=== PATIENT | female | born 1970 | race Caucasian/White ===

== ENCOUNTER 2019-05-03 15:15 | Inpatient (IN) | payer BC ==
[2019-05-03 16:42] LABS: Hemoglobin 13.7 g/dL (12.0-16.0); Mean Corpuscular HGB CONC 33.5 g/dL (32.0-36.0); Mean Corpuscular Hemoglobin 29.6 pg (27.0-31.0); Mean Corpuscular Volume 88.4 fL (78.0-98.0); Mean Platelet Volume 7.2 fL (7.4-10.4); Platelet Count 260 thou/uL (130-400); RBC Distribution Width 13.3 % (11.5-14.5); Red Blood Cell (RBC) Count 4.62 mill/uL (4.20-5.40); White Blood Cell (WBC) Count 6.6 thou/uL (4.8-10.8)
[2019-05-03 17:18] LABS: BHCG - Serum Negative (NEGATIVE); Pregs Control Background? CLEAR/WHITE (CLR/WHITE); Pregs Control Bar Appear? YES (CONTROL BAR)
[2019-05-04] MEDS ORDERED: Gabapentin 300 MG CAP ONE (06:27)
[2019-05-04] MEDS ORDERED: Famotidine/PF 20 mg/2ml Vial ONE (06:28)
[2019-05-04] MEDS ORDERED: Fentanyl 100 MCG/2 ML VIAL ONE (06:28)
[2019-05-04] MEDS ORDERED: CeleCOXIB 100 MG CAP ONE (06:28)
[2019-05-04] MEDS ORDERED: Midazolam HCl 2 mg/2 ml Vial ONE ×2 (06:28→07:09)
[2019-05-04] MEDS ORDERED: CEFAZOLIN 1 GM VIAL ONE (06:29)
--- NOTE | 2019-05-04 06:29 | HP ---
DATE OF SCHEDULED SURGERY: 05/04/2019. HISTORY OF PRESENT ILLNESS: Ms. Gonzales is a 48-year-old white female G4, P2, A2 with prior 2 vaginal deliveries who was presenting with increasing pelvic prolapse symptoms. She has a known cystocele with stress incontinence symptoms. She describes loss of urine with cough, sneeze provoking actions. This is worse when she is standing up, it is especially for prolonged periods. She has tried pelvic floor therapy and Kegel's with no improvement in her prolapse symptoms. She feels a constant bulge, heaviness in her pelvis along with the urinary incontinence issues. She is also having very heavy menstrual flow and cramping. Due to the heavy flow and crampiness, she had a transvaginal ultrasound on March 29 showing myometrial changes consistent with adenomyosis and also small uterine fibroids. No adnexal masses were noted. She describes these symptoms she is having is affecting her activities of daily life and she has failed conservative therapy and desires definitive surgical therapy. PAST MEDICAL HISTORY: Negative. PAST SURGICAL HISTORY: D & C x2, Pap smear with HPV cells were negative in April 2017 and breast surgery augmentation. SOCIAL HISTORY: She is a nonsmoker. ALLERGIES: SHE HAS NO KNOWN DRUG ALLERGIES. FAMILY HISTORY: Noncontributory. PHYSICAL EXAMINATION: VITAL SIGNS: Her blood pressure is 118/68, pulse 75, respirations 18, O2 saturation on room air is 98%, weight is 156 pounds, height 5 feet 6 inches, BMI 25.2. HEENT: Within normal limits. CHEST: Clear to auscultation. HEART: Regular rate and rhythm. S1 and S2 heart sounds. No murmurs, rubs, or gallops. ABDOMEN: Soft, nontender, nondistended with no palpable masses. PELVIC: Vulva vagina had no lesions. Cervix had no lesion. She had a grade 3 cystocele and grade 2 rectocele. She has had a hypermobile urethral vaginal angle of approximately 45 degrees. She had grade 2 apical uterine prolapse also noted. Adnexa were nontender with no masses. She underwent formal urodynamic study on April 20 in the dorsal lithotomy position. She had a postvoid residual of 168. She had first sensation at 438 mL, 2nd at 597 and third at 807. Lying down, she did not manifest any leak with cough or Valsalva, but patient states most of her symptoms occur when she is in the standing position, provoking this with coughing, sneezing and straining. She does not have any urge incontinence symptoms. ASSESSMENT: This is a 48-year-old white female G4, P2, A2 with grade 3 cystocele, grade 2 rectocele, grade 2 uterine prolapse with genuine stress incontinence symptoms. She also has menorrhagia with uterine fibroids and findings on ultrasound consistent with adenomyosis. PLAN: Plan is to proceed with robotic total laparoscopic hysterectomy with bilateral salpingectomy followed by uterosacral vaginal vault suspension and anterior posterior repair with an Advantage Fit TVT and cystoscopy. The risks and benefits of procedure discussed in detail. She is set for surgery on 05/04/2019. Job ID: [id number]
[2019-05-04] MEDS ORDERED: Lidocaine 1% w/Epinephrine 1:100K 20 ML VIAL ONE ×2 (07:01→10:27)
[2019-05-04] MEDS ORDERED: Bupivacaine HCl 0.5%/Epinephrine 1:200,000/PF 30 ml Vial ONE (07:01)
[2019-05-04] MEDS ORDERED: Scopolamine 1.5 mg/72 hour Patch ONE (07:09)
[2019-05-04] MEDS ORDERED: Ondansetron HCl/PF 4 MG/2 ML Vial IVP PRN (11:22)
[2019-05-04] MEDS ORDERED: Promethazine HCl 25 MG/ML VIAL SLOW IVP PRN (11:22)
[2019-05-04] MEDS ORDERED: Promethazine HCl 25 MG/ML VIAL IM PRN ×2 (11:22→12:32)
[2019-05-04] MEDS ORDERED: Meperidine HCl/PF 25 MG/ML VIAL SLOW IVP PRN (11:22)
[2019-05-04] MEDS ORDERED: Meperidine HCl/PF 25 MG/ML VIAL ONE (11:54)
[2019-05-04] MEDS ORDERED: diphenhydrAMINE 25 MG CAP PO PRN (12:32)
[2019-05-04] MEDS ORDERED: Morphine 4 MG/ML VIAL SLOW IVP PRN (12:32)
[2019-05-04] MEDS ORDERED: Zolpidem Tartrate 5 MG TAB PO PRN (12:32)
[2019-05-04] MEDS ORDERED: Ondansetron PF 4 MG/2 ML Vial IVP PRN (12:32)
[2019-05-04] MEDS ORDERED: traMADol HCl 50 MG TAB PO PRN ×2 (12:32)
[2019-05-04 12:49] VITALS: BMI 24.5
[2019-05-04] MEDS ORDERED: Ketorolac Tromethamine 30 MG/ML VIAL ONE (15:17)
[2019-05-04] MEDS ORDERED: Lidocaine 1% PF 5 ML VIAL ONE (15:17)
[2019-05-04] MEDS ORDERED: PROPOFOL 200 MG/20 ML VIAL ONE (15:17)
[2019-05-04] MEDS ORDERED: Rocuronium Bromide 10 MG/ML (10ML VIAL) ONE (15:17)
[2019-05-04] MEDS ORDERED: Metoclopramide HCl 10 MG/2 ML VIAL ONE (15:17)
[2019-05-04] MEDS ORDERED: Dexamethasone 20 MG/5 ML VIAL ONE (15:17)
[2019-05-04] MEDS ORDERED: Ondansetron PF 4 MG/2 ML Vial ONE (15:17)
[2019-05-04] MEDS: Ketorolac Tromethamine 30 MG/ML VIAL IVP SCH (17:11)
[2019-05-04] MEDS: Lactated Ringer's 1,000 ML IV SCH (20:00)
[2019-05-04] MEDS: Ascorbic Acid 500 mg Chewable Tablet PO SCH (20:59)
[2019-05-04] MEDS: Simethicone Chewable 80 MG TAB PO PRN (20:59)
[2019-05-04] MEDS ORDERED: Ferrous Sulfate 325 MG TAB PO SCH (21:00)
[2019-05-05] MEDS: Ketorolac Tromethamine 30 MG/ML VIAL IVP SCH ×5 (00:10→15:06)
[2019-05-05] MEDS: Lactated Ringer's 1,000 ML IV SCH ×3 (01:27→12:25)
[2019-05-05 06:06] LABS: Hemoglobin 12.4 g/dL (12.0-16.0); Mean Corpuscular Hemoglobin 29.4 pg (27.0-31.0); Mean Corpuscular Volume 89.2 fL (78.0-98.0); Mean Platelet Volume 7.3 fL (7.4-10.4); Platelet Count 226 thou/uL (130-400); RBC Distribution Width 13.3 % (11.5-14.5); Red Blood Cell (RBC) Count 4.21 mill/uL (4.20-5.40); White Blood Cell (WBC) Count 12.3 thou/uL (4.8-10.8)
--- NOTE | 2019-05-05 07:59 | PDOC.EVN ---
Event Note - Event Note Event Note: Good pain control. Tolerating diet. No concerns. O:AFVSS HCT 37.6 U/O 4000ml Trochar sites clean, dry , and intact. A/P: Post op day 1 from robotic tlh with a&P and advantage fit TVT/uterosacral vaginal vault suspension. Begin Voiding trials...
[2019-05-05] MEDS: Ascorbic Acid 500 mg Chewable Tablet PO SCH (09:16)
[2019-05-05] MEDS: Simethicone Chewable 80 MG TAB PO PRN (09:17)
--- NOTE | 2019-05-05 10:08 | OP ---
DATE OF PROCEDURE: 05/04/2019 PREOPERATIVE DIAGNOSES: 1. A 48-year-old white female 4, para 2, 2 with symptomatic grade 3 cystocele, grade 2 uterine prolapse, and grade 3 rectocele. 2. Menorrhagia and uterine fibroids. 3. Adenomyosis on ultrasound findings. 4. Genuine stress incontinence. POSTOPERATIVE DIAGNOSES: 1. A 48-year-old white female 4, para 2, 2 with symptomatic grade 3 cystocele, grade 2 uterine prolapse, and grade 3 rectocele. 2. Menorrhagia and uterine fibroids. 3. Adenomyosis on ultrasound findings. 4. Genuine stress incontinence. PROCEDURE PERFORMED: 1. Robotic total laparoscopic hysterectomy. 2. Bilateral salpingectomy. 3. Uterosacral vaginal vault suspension. 4. Anterior-posterior repair. 5. Advantage Fit TVT with cystoscopy. EQUIPMENT ANALYST SURGEON: Wendy Quinteros DO. ANESTHESIA: General. ESTIMATED BLOOD LOSS: 50 mL. COMPLICATIONS: None. COUNTS: Correct x2. ANTIBIOTICS: 2 g Ancef. ON-CALL: To OR. PATHOLOGY: Uterus, cervix and bilateral fallopian tubes. FINDINGS: 1. Globularly enlarged approximately 8-10 week size uterus consistent with adenomyosis with small uterine fibroids. 2. Normal-appearing bilateral fallopian tubes and ovaries. 3. Cystoscopy of the bladder showed normal mucosa with no evidence of trocar placement, status post Advantage Fit TVT and also bilateral efflux of urine noted in the each ureteral orifice postprocedure. DISPOSITION: Recovery room, stable. DESCRIPTION OF OPERATIVE PROCEDURE: The patient previously received informed consent in regard to surgery. She was taken back to the operating room, where she received a general anesthetic agent without complications. She was placed in dorsal supine position with use of Armando stirrups and prepped and draped in usual sterile fashion. Joya catheter was placed at this time. A side-arm speculum was placed in the vagina. Anterior lip of the cervix was grasped with single-tooth tenaculum. The uterus sounded to 10 cm. A 10 cm DEDE uterine manipulator with a 4.0 cm cervical cup was placed in usual fashion. Tenaculum and speculum were removed. Attention was then turned to the abdomen, where perspective trocar sites were infiltrated with 0.5% Marcaine with epinephrine. A 12 mm supraumbilical incision was made. Veress needle was entered into the peritoneal cavity. The patient's pressure was noted to be less than 5 mm and abdomen was thought to be insufflated. This insufflated with the patient's pressure of 15, approximately 4.5 L of carbon dioxide gas. Veress needle was then removed. A 12 mm trocar was placed through the supraumbilical incision. The laparoscope was introduced through trocar sleeve confirming proper entry. The patient was then placed in Trendelenburg position. Additional bilateral lower quadrant 8 mm trocars were placed. Laparoscopic guidance along with the right upper quadrant 11 mm port. The robot was then docked in usual fashion. I then broke scrub and proceeded to carry out the procedure from the operative console while my assistants remained at the bedside. The uterus was elevated. The uterosacral ligaments were identified. The course of each ureter bilaterally was identified to be lateral to the prospective uterosacral windows that were going to be developed for uterosacral vaginal vault suspension later. The left uterosacral ligament was grasped with bipolar fenestrated cautery and medial to this the peritoneum and the uterosacral ligament were lifted with bipolar fenestrated cautery and then was incised with monopolar scissors developing a window medial and noted to be away from the left ureter. This was repeated in likewise fashion on the right side uterosacral ligament. We then proceeded to identify the left tube and ovary. The tube was grasped by my assistant merchandise manager and the medial salpinx was excised with monopolar scissors creating a window. Bipolar fenestrated cautery was used to coagulate the mesosalpinx and the tube was excised and brought out through the right upper quadrant assistant merchandise manager port. The left uterine ovarian ligament was then coagulated and transected. Serial coagulation of the broad ligament hugging close to uterus was carried out. Coagulation transection ensued to the left round ligament was reached. It was coagulated and transected. The anterior leaf of the vesicouterine peritoneum was then incised, developing the bladder flap in usual fashion both sharply and bluntly dissecting the bladder past the cervical vaginal angle and margin. The uterine vessels in the left side were skeletonized and coagulated in the internal cervical os region with bipolar fenestrated cautery. This was carried out in likewise fashion on the right side again. Right tube was removed in similar fashion. Right utero-ovarian ligament was coagulated and transected and serial coagulation of the broad ligament hugging close to the uterus was carried out until the right round ligament was reached. It again was coagulated and transected again entering the anterior leaf of the broad ligament and vesicouterine peritoneum with incision and dissection, dropping the bladder in a layering technique past the cervical vaginal angle. The bladder was insufflated also confirming its safety. The uterine vessels on the right side again were skeletonized, coagulated in the internal cervical os region. The anterior colpotomy was then made starting from 12 to 3 and 12 to 9 o'clock position. It was completed posteriorly from 6 to 9 and 6 to 3 o'clock. The uterine specimen was then delivered in the vaginal vault. The vaginal cuff was coagulated any oozing areas with bipolar fenestrated cautery. The monopolar scissors were switched with a Donnell needle ready mix truck driver. My assistant merchandise manager brought in a Stratafix suture and then the Stratafix suture was utilized to close the vaginal cuff starting at the right angle up to the midline. The Stratafix suture broke and then additional one was brought in after it was removed. This began at the left ankle and completed across to the right angle securing hemostasis and closure. The needle and the suture were brought out through the right upper quadrant assistant merchandise manager port. Then 2-Ethibond sutures were brought into the pelvis. The Ethibond suture was utilized to suture full thickness through the right medial, right middle and lateral portions of the vaginal cuff, bringing this through the previous dissected window of the right uterosacral ligament back handedly through the posterior vaginal cuff. This was tied with 6 suture knots lifting the vaginal cuff. This was repeated in likewise fashion on the left side. Bilateral ureters were noted to be visible the entire time and post suspension they were noted to have bilateral peristalsis confirmed. Sutures and needles were then removed and the right upper quadrant assistant merchandise manager port. The pelvis irrigated and suctioned. The pedicle sites were inspected and noted to be hemostatic. The robot was then undocked and trocar sleeves were removed. I broke from the console and then rescrubbed and then the fascial defect in the supraumbilical area was closed with a [id number]-[id number]-[id number] suture of 0 Vicryl. The remainder of the trocar sites were closed with 4-0 Monocryl suture with Dermabond. Attention was then turned to the vaginal portion of surgery. This is the vaginal portion of her surgery on 05/04/2019. The patient was placed in dorsal lithotomy position for vaginal surgery. Weighted speculum was placed in the vagina. The Joya catheter was noted to be draining clear urine at this time. The vaginal cuff was identified and two Allis clamps were clamped there. The anterior vaginal mucosa was infiltrated with 1% lidocaine with epinephrine. A midline vertical incision starting at the cuff line to approximately 2 cm from the urethral meatus was made with Metzenbaum scissors. The edges of the anterior vaginal mucosa were grasped with Allis clamps with counter traction. This allowed for dissection of the endopelvic fascial defect, dissecting still both sharply and bluntly. Once the cystocele had been reduced, intervening mattress sutures of 2-0 Vicryl were placed incorporating the endopelvic fascia and plicating in the midline reducing the cystocele. After this was accomplished, the anterior vaginal mucosa was closed with 2-0 Vicryl suture incorporating some of the endopelvic fascia, ridding the space. Once this had been accomplished, the midportion of the urethra was identified. The Joya bulb had been palpated at the UV junction and the midportion of the urethra was visualized and palpated. anteriorly and inferiorly to this portion were placed and lidocaine with epinephrine again was infiltrated in the mucosa overlying the mid urethra and bilateral sulci of the vagina in the towards the junction of the symphysis pubis and inferior pubic ramus. Approximately 1.5 cm vertical midline vaginal mucosal incision over the mid urethra was made. The edges of this were grasped with two Allis clamps. Then, I dissected submucosally the vaginal mucosa with Metzenbaum scissors in the junction direction of the inferior pubic rami and symphysis pubis, perforating into the space of Retzius bilaterally. Once this had been accomplished, the symphysis pubis had been marked in the midline of the urethra and 2 cm lateral on each side to this behind the symphysis pubic bone for the marker sites per perspective trocar exits. This area was then hydrodissected with approximately 60 mL of sterile saline. The Advantage Fit TVT device was then assembled and Joya catheter had been removed. The Joya with a guidewire was placed deflecting the bladder towards the patient's left. The Advantage Fit trocar was then placed to the patient's right side, the previously dissected submucosal space of Retzius tunneling. The trocar was brought through there and the handle was dropped, passing the trocar underneath the symphysis pubis into the previously marked exit site. This was perforated through the skin and then the plastic portion of the mesh was grasped with Connie clamps. The trocar was then backed out. This was repeated in likewise fashion on the patient's left side. Then, the bladder had been deflected to the patient's right side during the trocar placement on the left. The Joya was removed and 70-degree cystoscope was then placed. The bladder was distended. The bladder mucosa was inspected. There was no evidence of any mesh placement through the bladder. The trigone was then also identified and bilateral ureteral orifices were visualized. Bilateral efflux of urine was noted. The cystoscope was then removed. The TVT mesh was aligned appropriately and a Ghotra scissor was then placed under the mid urethra. My assistant merchandise manager then brought the mesh up with the Ghotra scissor and incised in place giving exacting attention. The cap was then cut and the plastic sleeves over the mesh was released. The mesh was then cut at the skin line in the symphysis pubis area and then Dermabond was placed over these. The Ghotra scissor was then removed. The area over the TVT mucosa was closed with interrupted drqcuk-sg-bnffy stitch sutures of 2-0 Vicryl securing hemostasis. Ojya catheter was then reinserted with clear urine draining. The posterior repair was then performed. The vaginal mucosa at the 4 and 8 o'clock position of the vaginal introitus was grasped with two Allis clamps. The perineal body appeared preserved. The posterior vaginal mucosa was infiltrated with 1% lidocaine with epinephrine. A midline incision with the scalpel along with Metzenbaum scissors were then utilized to incise the posterior vaginal mucosa to the cuff line. The edges of the vaginal mucosa were grasped with Allis clamps for counter traction and exposure. The rectocele defect was dissected sharply and bluntly reduced in its entirety. An extra glove was then placed over my right surgical glove and a rectal exam was performed, identifying the fascial defect. The endopelvic fascia and upper portion of the vagina were grasped bilaterally with two Allis clamps. Rectal blood was then removed and then I proceeded to plicate the endopelvic fascia with 0 Vicryl sutures in a pfmgyh-pq-jwhsk stitch fashion, repairing the rectocele defect starting most cephalad and working out towards the vaginal introitus. Once the endopelvic fascia had been reapproximated and plicated reducing the rectocele, the vaginal mucosa was then closed starting most cephalad with interrupted 2-0 Vicryl nefhjo-eg-aopnf stitch again incorporating the endopelvic fascia. This worked out towards the vaginal introital opening and the excess tissue throughout the mucosa were incised. Once this was closed, hemostasis was confirmed. The rectal exam again was performed and rectal mucosa stitches were palpable. Moistened Kerlix was then packed in the vaginal vault and then the patient was awakened from anesthesia and transferred to recovery room in stable condition. Job ID: [id number]
[2019-05-05 11:47] VITALS: BP 129/72; TEMP 98.4
[2019-05-05] MEDS ORDERED: Ibuprofen 800 MG TAB PO SCH (12:00)
--- NOTE | 2019-05-06 05:31 | DIS ---
DATE OF ADMISSION: 05/04/2019 DATE OF DISCHARGE: 05/05/2019 DIAGNOSES: 1. Symptomatic uterine fibroids with menorrhagia. 2. Adenomyosis of the uterus. 3. Cystocele and rectocele. 4. Genuine stress incontinence and uterine prolapse. PROCEDURES PERFORMED: 1. Robotic total laparoscopic hysterectomy and bilateral salpingectomy with uterosacral vaginal vault suspension. 2. Anterior and posterior repair. 3. Advantage Fit TVT with cystoscopy. SUMMARY OF HOSPITAL COURSE: Ms. Gonzales is a 48-year-old white female with symptomatic pelvic prolapse and stress incontinence along with menorrhagia secondary to uterine fibroids and adenomyosis of the uterus. She underwent definitive surgical therapy with robotic total laparoscopic hysterectomy, bilateral salpingectomy with uterosacral vaginal vault suspension, and anterior and posterior repair with Advantage Fit TVT cystoscopy on 05/04/2019. Postoperatively, the patient has done well. She is hemodynamically stable. Vital signs were stable. Hematocrit postop day #1 was 37.9%. She began voiding trials on the morning of postop day #1. She was initially unable to void and a straight catheterization was performed relieving an approximate of 1 L of her urine. She began having more voiding trials, voided 150-200, but had significant postvoid residual over 750 to 800 range and therefore, Joya catheter was reinserted. She was discharged home the afternoon of postop day #1 with Joya in situ. Plan is to continue Joya drainage to allow for bladder recoil since the patient did have elevated postvoid residuals in her initial urodynamics. This allowed for recoil of the bladder and to improve voiding function. Plan to remove the Joya on postop day #5 in my office on 05/10. Pathology revealed benign uterine fibroids and adenomyosis of the uterus, benign fallopian tube findings. Discharge medications will be [id number] ibuprofen and Tylenol as directed, stool softener as directed, and routine discharge instructions will be given. Job ID: [id number]
[2019-05-09] MEDS ORDERED: Ibuprofen 800 MG TAB PO SCH (22:00)
== END 2019-05-05 17:25 | disposition home or self-care (01) | DRG 743 ==
LOC: SURG A 05-04 05:51 → 3SW 05-04 12:25
PROVIDERS: ADMIT Obstetrics & Gynecology; ATTEND Obstetrics & Gynecology
PROC: 0UT94ZZ Resection of Uterus, Percutaneous Endoscopic Approach (ICD-10-PCS; principal; 2019-05-04)
PROC: 0USG7ZZ Reposition Vagina, Via Natural or Artificial Opening (ICD-10-PCS; 2019-05-04)
PROC: 0UB74ZZ Excision of Bilateral Fallopian Tubes, Percutaneous Endoscopic Approach (ICD-10-PCS; 2019-05-04)
PROC: 0TSD4ZZ Reposition Urethra, Percutaneous Endoscopic Approach (ICD-10-PCS; 2019-05-04)
PROC: 0JQC3ZZ Repair Pelvic Region Subcutaneous Tissue and Fascia, Percutaneous Approach (ICD-10-PCS; 2019-05-04)
PROC: 8E0W4CZ Robotic Assisted Procedure of Trunk Region, Percutaneous Endoscopic Approach (ICD-10-PCS; 2019-05-04)
DX: N81.2 Incomplete uterovaginal prolapse (principal); N39.3 Stress incontinence (female) (male); N81.6 Rectocele; N80.0 Endometriosis of uterus; D25.9 Leiomyoma of uterus, unspecified
CPT/HCPCS: 36415; 84703; 85027; 86850; 86900; 86901; 88307; C1781; J0131; J0670; J0690; J1100; J1885; J2001; J2175; J2250; J2405; J2704; J2765; J3010; S0028